=== PATIENT | female | born 1995 | race Caucasian/White ===

== ENCOUNTER 2021-07-27 11:44 | Emergency (ER) | payer BC, MEDICAID ==
[~2021-07-27] VITALS: Ht 152.4 cm; Wt 68.0 kg
[2021-07-27 11:58] VITALS: BP_SYST 114
--- NOTE | 2021-07-27 12:00 | NUR ---
Patient to ER bed 7 to gown for evaluation. Side rails up.
--- NOTE | 2021-07-27 12:01 | NUR ---
NITA ARRIVES FROM HOME W/ LLQ ABD PAIN X 2 DAYS, SHARP, 6/10, NON-RADIATING
--- NOTE | 2021-07-27 12:10 | NUR ---
ua collected and sent to the lab
--- NOTE | 2021-07-27 13:07 | NUR ---
ER at bedside examining patient.
[2021-07-27] MEDS ORDERED: CIPR500T5 PO (13:19)
--- NOTE | 2021-07-27 13:25 | NUR ---
Patient given written and verbal discharge instructions and verbalizes understanding. ER MD discussed with patient the results and treatment provided. Patient in stable condition. ID arm band removed. Rx of cipro given. Patient educated on pain management and to follow up with PMD. Pain Scale 0. Opportunity for questions provided and answered. Medication side effect fact sheet provided.
[2021-07-27 13:27] VITALS: BP_SYST 114
== END 2021-07-27 13:25 | disposition home or self-care (01) ==
LOC: SED 11:44
DX: N39.0 Urinary tract infection, site not specified (principal)
CPT/HCPCS: 81002; 81025; 99283